=== PATIENT | female | born 1995 | race Two or more races ===

== ENCOUNTER 2017-07-14 01:57 | Observation (INO) | payer MEDICAID ==
[2017-07-14] MEDS ORDERED: EPSOM SALT 454 GM TP PRN (03:06)
[2017-07-14] MEDS ORDERED: IBUPROFEN 600 MG TAB PO PRN (03:06)
[2017-07-14] MEDS ORDERED: OXYTOCIN 20 UNIT in LR 1,000 ML IV PRN (03:06)
[2017-07-14] MEDS ORDERED: LR 1,000 ML IV PRN (03:06)
[2017-07-14] MEDS ORDERED: OLIVE OIL 118 ML BTL MISC PRN (03:06)
[2017-07-14] MEDS ORDERED: MISOPROSTOL 100 MCG TAB PO SCH (03:15)
--- NOTE | 2017-07-14 04:20 | GHP ---
[f rep st] HISTORY AND PHYSICAL DATE OF ADMISSION: 07/14/2017 ADMITTING DIAGNOSES: 1. Intrauterine demise (IUFD) at 26 weeks and 1 day. 2. Vaginal bleeding. HISTORY OF PRESENT ILLNESS: The patient is a 21-year-old, 1, para 0, at 26 weeks and 1 day w ith an estimated due date 10/19/2017 by last menstrual period, consistent with a 9-week ultrasound. Patient presented to Labor and Delivery with complaints of a gush of fluid at 1 o'clock. The patient noted that her underwear were wet and it did not smell like urine. She then laid there and then not iced another gush running down her side and noticed it was bright red blood. She endorses some mild cramping that just started after she got to Labor and Delivery. Does note movement at 1 o'cloc k and now states there is no movement here on Labor and Delivery. The patient does have good [facility] care at [facility]. She presented in her 1st trimester at 9 weeks. is complicated in that it is a teen . She did have a positive chlamydia in the first trimes ter, was treated with azithromycin on 04/23 and then had a negative test of cure, 06/05. Rubella was nonimmune. The patient states on 20 week ultrasound there were suboptimal views of heart and spine and she had a followup ultrasound the 6th of this month and both the heart and spine appeared normal. No other issues. She recently just had her 28 week labs done. Her 1 hour Glucola was normal. Hem atocrit 33.8. She is taking iron. The patient did receive a flu vaccine during this . PAST OB HISTORY: Patient is a primigravida. GYNECOLOGIC HISTORY: Age of menarche is 14. Cycles are regular, every 28 days for 6-7 days. The pa tierekha denies a history of abnormal Pap smear. She does endorse exposure to sexually transmitted dise ases, chlamydia in this with a negative test of cure. PAST MEDICAL HISTORY: Unremarkable. PAST SURGICAL HISTORY: None. MEDICATIONS: vitamins, iron. ALLERGIES: No known drug allergies. FAMILY SOCIAL HISTORY: Noncontributory. LABS: A-positive, antibody negative, RPR nonreactive, hepatitis B surface antigen nonreacti ve, rubella non immune, HIV negative. One-hour Glucola was normal. Hematocrit at 28 weeks 33.8. PHYSICAL EXAMINATION: VITAL SIGNS: On admission, vital signs are stable. Patient is afebrile. GENE RAL: Well-nourished, well-developed female. Alert and oriented x3. No apparent distress. CARDIOVA SCULAR: Regular rate and rhythm. LUNGS: Clear to auscultation bilaterally. ABDOMEN: Gravid, soft , nontender. EXTREMITIES: Normal to inspection without edema. PELVIC: There is bright red vaginal bleeding noted. AmniSure was collected, may not be accurate secondary to blood loss. A bedside ultrasound was perfor med. The nurse could not assess heart rate with Dopplers so bedside ultrasound was confirmed. No movement noted. No cardiac activity seen. Cephalic anterior placenta. No signs of abrupt ion noted. ASSESSMENT AND PLAN: The patient is a 21-year-old, 1, para 0, at 26 weeks and 1 day with est imated due date 10/19/2017 with intrauterine demise. 1. Admit to Labor and Delivery. 2. Will obtain blood work, type and screen, CBC, Kleihauer Brianna, coags, urine drug tox. 3. AmniSure was collected. Again, may not be accurate secondary to blood. 4. Discussed induction of labor. We will start with Cytotec 100 mcg orally for 4 doses. 5. Epidural as needed. 6. We did discuss waiting until her mom got here this morning before starting the induction. /[id number]/MODL
[2017-07-14 04:22] LABS: % IMMATURE GRANULYOCYTES 0.6 % (0.0-1.1); ABSOLUTE IMMATURE GRANULOCYTES 0.05 10^3/uL (0.00-0.10); ADD DIFF? NO; ADD MORPH? NO; ADD SCAN? NO; ATYPICAL LYMPHOCYTE FLAG 10 (0-99); FRAGMENT RBC FLAG 0 (0-99); HEMATOCRIT 33.1 % (38.0-47.0); HEMOGLOBIN 11.5 g/dL (12.6-16.3); LEFT SHIFT FLG 0 (0-99); LIPEMIA HEMOLYSIS FLAG 90 (0-99); MEAN CELL HEMOGLOBIN 31.9 pg (27.9-34.1); MEAN CELL HEMOGLOBIN CONCENTR. 34.7 g/dL (32.4-36.7); MEAN CELL VOLUME 91.7 fL (81.5-99.8); MEAN PLATELET VOLUME 9.2 fL (8.7-11.7); PLATELET CLUMPS FLAG 0 (0-99); PLATELET COUNT 288 10^3/uL (150-400); RED BLOOD CELL COUNT 3.61 10^6/uL (4.18-5.33); RED CELL DISTRIBUTION WIDTH 12.6 % (11.5-15.2)
[2017-07-14 04:31] LABS: INR 0.95 (0.83-1.16); PROTIME(PATIENT) 12.6 SEC (12.0-15.0)
[2017-07-14 04:33] LABS: FIBRINOGEN 492 mg/dL (214-456)
[2017-07-14 04:46] LABS: PHENCYCLIDINE URINE BCH < 6 ng/ml (NEGATIVE); PHENCYCLIDINE URINE BCH NEGATIVE (NEGATIVE)
[2017-07-14 04:57] LABS: TETRAHYDROCANNABINOL URINE 394 ng/mL (NEGATIVE)
[2017-07-14 05:09] LABS: PLATELET COUNT 288 10^3/uL (150-400)
[2017-07-14 06:45] LABS: FETAL STAIN LOT NUMBER 93212; FETAL STAIN NEGATIVE NEGATIVE; FETAL STAIN POSITIVE POSITIVE
== END 2017-07-14 08:45 | disposition home or self-care (01) ==
LOC: FLD 01:57
PROVIDERS: ADMIT Obstetrics & Gynecology; ATTEND Obstetrics & Gynecology
DX: O36.4XX0 Maternal care for intrauterine death, not applicable or unspecified (principal); Z3A.26 26 weeks gestation of pregnancy
CPT/HCPCS: 76805; 76815; G0378; 80307; G0480